=== PATIENT | female | born 1960 | race American Indian/Alaskan Native ===

== ENCOUNTER 2018-08-16 09:54 | Day surgery (SDC) | payer MEDICARE ==
[2018-08-16] MEDS ORDERED: NACL 0.9% 1000 ML 1,000 ML IV SCH (12:00)
--- NOTE | 2018-08-16 13:22 | Anesthesia Consultation ---
Anesthesia Consult and Med Hx Date of service: 08/16/18 - Airway Anesthetic Teeth Evaluation: Good ROM Head & Neck: Adequate Mental/Hyoid Distance: Inadequate Mallampati Class: Class III Intubation Access Assessment: Possibly Difficult - Pulmonary Exam CTA: Yes - Cardiac Exam Cardiac Exam: RRR - Pre-Operative Health Status ASA Pre-Surgery Classification: ASA3 Proposed Anesthetic Plan: MAC - Pulmonary Hx Smoking: Yes (former) Hx Asthma: Yes Hx Pneumonia: Yes (HX) Hx Sleep Apnea: Yes - Cardiovascular System Hx Hypertension: Yes Hx Peripheral Vascular Disease: Yes (DVT, plavix D/C) - Gastrointestinal Hx Gastroesophageal Reflux Disease: Yes - Other Systems Hx Obesity: Yes
--- NOTE | 2018-08-16 13:23 | Anesthesia Day of Surgery ---
Anesthesia Day of Surgery - Day of Surgery Patient Examined: Yes Patient H&P Reviewed: Yes Patient is NPO: Yes
[2018-08-16] MEDS ORDERED: DIPRIVAN 10 MG/ML IV ONE ×2 (15:01→15:34)
[2018-08-16] MEDS ORDERED: XYLOCAINE TOPICAL 2% 5ML ONE (15:05)
[2018-08-16] MEDS ORDERED: WATER FOR IRRIG STERILE IR ONE (15:05)
--- NOTE | 2018-08-16 15:41 | Operative Report ---
Operative Report Operative Report: Date of procedure: 08/16/2018 Procedure: Flexible Sigmoidoscopy Hemorrhoidal band ligation. Attending physician: Gideon Stringer MD Plant Guide: Gideon Stringer MD Indication: Patient is a 57-year-old female who presents with anorectal discomfort with symptomatic internal hemorrhoids. This procedure is done to evaluate patient so that treatment may be directed based on the findings. Consent: Informed consent was obtained after advising the patient and family regarding nature of this procedure, its indications, potential benefits as well as possible complications including but not limited to bleeding perforation and adverse reaction to medication, infection as well as other cardiopulmonary complications. An informed written and verbal consent was then obtained after due opportunity was provided for questions and answers. Monitoring: Patient was monitored continuously with pulse oximetry and electrocardiographic recordings as well as blood pressure recordings. Vital signs remained stable throughout this procedure with no untoward events. Preoperative assessment: Patient was assessed immediately prior to this procedure for capacity to tolerate monitored anesthesia care and moderate sedation as well as general anesthesia. Patient's ASA classification is 2, Mallampati class is 2, Hyomental distance is 3. Instrument: [employer] video colonoscope. Multiband ligator Medications: Propofol given intravenously in divided doses for details please refer to anesthesia records. Description of procedure: Patient was placed in the left lateral decubitus position after achieving sedation, a digital rectal examination was performed following which the endoscope was introduced into the anal verge and advanced to the descending colon. The endoscope was subsequently withdrawn with careful inspection of all mucosal surfaces. Patient tolerated this procedure well and was subsequently taken to the recovery room. The following findings were noted. Findings: The Descending colon was normal. Sigmoid colon was normal. On the retroflex view at the anal verge patient had prominent friable internal hemorrhoids. An upper endoscope was preloaded with the multiband ligator reintroduced into the rectum. 5% lidocaine gel was applied in the rectum. In the retroflex view, 5 bands were applied over the hemorrhoids above the dentate line. Patient tolerated procedure well no untoward events. Impression: Prominent internal hemorrhoids status post hemorrhoidal band ligation. Plan: Daily sitz baths. High-fiber diet. Patient to apply lidocaine ointment 5% per rectum every 6 hours as needed. Anusol HC suppositories per rectum every night. Patient to use stool softeners as needed. Miralax 17 g in 8 ounce glass of water has been prescribed. Tramadol 50 mg every 6 hours as needed for pain. Patient is scheduled for further outpatient follow-up. Patients further instructed that if she developes persistent bleeding and or fevers to call the office immediately.
--- NOTE | 2018-08-16 15:41 | Discharge Summary ---
Short Stay Discharge Plan Activity: advance as tolerated Weight Bearing Status: Weight Bear as Tolerated Diet: regular Follow up with: BETTINA MONTOYA MD [Primary Care Provider] - 7 Days
[2018-08-16 15:54] VITALS: BP 133/80
== END 2018-08-16 09:55 | disposition home or self-care (01) ==
LOC: GIO 09:54
PROVIDERS: ATTEND Internal Medicine Gastroenterology
DX: K64.8 Other hemorrhoids (principal); K62.5 Hemorrhage of anus and rectum; K59.00 Constipation, unspecified; I10 Essential (primary) hypertension; J45.909 Unspecified asthma, uncomplicated; G47.30 Sleep apnea, unspecified; K21.9 Gastro-esophageal reflux disease without esophagitis; E66.9 Obesity, unspecified; Z68.42 Body mass index [BMI] 45.0-49.9, adult; Z90.49 Acquired absence of other specified parts of digestive tract; Z90.710 Acquired absence of both cervix and uterus; Z87.891 Personal history of nicotine dependence; Z88.5 Allergy status to narcotic agent; Z88.0 Allergy status to penicillin; Z88.8 Allergy status to other drugs, medicaments and biological substances; Z79.899 Other long term (current) drug therapy; Z98.890 Other specified postprocedural states
CPT/HCPCS: 45350; J2704; J7030